=== PATIENT | female | born 1955 | race Caucasian/White ===

== ENCOUNTER 2018-02-24 20:28 | Emergency (ER) | payer BC ==
[2018-02-24] MEDS ORDERED: TETRACAINE HCL 0.5% OPH SOLN 4 ML OU ONE (21:19)
[2018-02-24] MEDS ORDERED: CIPROFLOXACIN HCL 0.3% OPH SOLN 2.5 ML OU ONE (23:13)
--- NOTE | 2018-02-24 23:14 | ER Document Report ---
ED Eye Complaint - General Chief Complaint: Redness of Eye Stated Complaint: EYE PROBLEM Time Seen by Provider: 02/24/18 21:19 Notes: Patient is a 8-year-old female presents to the emergency department complaining of erythema, swelling, foreign body sensation, discharge from her right eye. Patient states she has had a cough and congestion for about a week now. States for the last 2 days she noticed some drainage coming from her right eye and some erythema. Patient states today she noticed the drainage was also coming from her left eye and her right eye had a foreign body sensation in it which is why she presents to the emergency room. Patient does not wear contacts but does wear corrective glasses. Patient states she is supposed to have cataract surgery next month. Past medical history: Diabetes, Hypertension, hyperlipidemia Medications: Metformin, Invokana, Januvia, lisinopril, atorvastatin, Flonase, vitamin D, aspirin Allergies: Penicillin, fire ants TRAVEL OUTSIDE OF THE [place] IN LAST 30 DAYS: No - Related Data Allergies/Adverse Reactions: Penicillins Allergy (Verified 02/24/18 21:14) Past Medical History - General Information source: Patient - Social History Smoking Status: Unknown if Ever Smoked Family History: Reviewed & Not Pertinent Patient has suicidal ideation: No Patient has homicidal ideation: No Renal/ Medical History: Denies: Hx Peritoneal Dialysis Past Surgical History: Reports: Hx Section - x2, Hx Orthopedic Surgery - bilat knee replace, bilat carpel tunnel Review of Systems - Review of Systems Constitutional: See HPI EENT: See HPI Cardiovascular: No symptoms reported Respiratory: See HPI Gastrointestinal: No symptoms reported Genitourinary: No symptoms reported Female Genitourinary: No symptoms reported Musculoskeletal: No symptoms reported Skin: No symptoms reported Hematologic/Lymphatic: No symptoms reported Neurological/Psychological: No symptoms reported Physical Exam - Vital signs Vitals: Temp Pulse Resp BP Pulse Ox 98.0 F 88 18 151/84 H 94 02/24/18 20:34 02/24/18 20:34 02/24/18 20:34 02/24/18 20:34 02/24/18 20:34 - Notes Notes: GENERAL: Alert, interacts well. No acute distress. HEAD: Normocephalic, atraumatic. EYES: Pupils equal, round, and reactive to light. Extraocular movements intact. Active mucoid discharge noted bilateral medial and lateral canthi. Active chemosis and conjunctival injection noted right eye. Minor conjunctival injection left eye. No proptosis, or pain with extraocular motion. No erythema noted upper or lower lids bilaterally. ENT: Oral mucosa moist, tongue midline. Nares patent, TM's intact, nonerythematous, nonbulging. Pharynx within normal limits, no palatal petechiae or exudate noted NECK: Full range of motion. Supple. Trachea midline. LUNGS: Clear to auscultation bilaterally, no wheezes, rales, or rhonchi. No respiratory distress. HEART: Regular rate and rhythm. No murmur ABDOMEN: Soft, non-tender. Non-distended. Bowel sounds present in all 4 quadrants. EXTREMITIES: Moves all 4 extremities spontaneously. No edema, normal radial and dorsalis pedis pulses bilaterally. No cyanosis. BACK: no cervical, thoracic, lumbar midline tenderness. No saddle anesthesia, normal distal neurovascular exam. NEUROLOGICAL: Alert and oriented x3. Normal speech. cranial nerves II through XII grossly intact PSYCH: Normal affect, normal mood. SKIN: Warm, dry, normal turgor. No rashes or lesions noted. - HEENT Visual acuity- Right eye: 20/70 Visual acuity- Left eye: 20/40 Visual acuity- Both eyes: 20/40 Corrective lenses worn: Yes Course - Re-evaluation Re-evalutation: 02/24/18 23:19 flroescene stain performed bilateral eyes. 1 mm corneal abrasion noted 8:00 to the right of the iris. Active mucoid discharge noted bilateral medial and lateral canthi. Active chemosis and conjunctival injection noted right eye. Minor conjunctival injection left eye. No proptosis, or pain with extraocular motion. No erythema noted upper or lower lids bilaterally. Will treat patient for corneal abrasion, conjunctivitis. Discussed need to follow-up with ophthalmology for chemosis treatment. Discussed possible eugc-hzi-gsqyuek use of Zaditor. Close return precautions discussed - Vital Signs Vital signs: Temp Pulse Resp BP Pulse Ox 98.2 F 84 16 142/84 H 95 02/24/18 23:33 02/24/18 23:33 02/24/18 23:33 02/24/18 23:33 02/24/18 23:33 Discharge - Discharge Clinical Impression: Chemosis of right conjunctiva Corneal abrasion Qualifiers: Encounter type: initial encounter Laterality: right Qualified Code(s): S05.01XA - Injury of conjunctiva and corneal abrasion without foreign body, right eye, initial encounter Conjunctivitis Qualifiers: Conjunctivitis type: acute Acute conjunctivitis type: bacterial Laterality: bilateral Qualified Code(s): H10.33 - Unspecified acute conjunctivitis, bilateral Condition: Stable Disposition: HOME, SELF-CARE Instructions: Chemosis ([facility]), Conjunctivitis ([facility]), Corneal Abrasion ([facility]), Eyedrop Use ([facility]) Additional Instructions: As we discussed you have been seen and treated in the emergency department for a corneal abrasion and conjunctivitis. You should use antibiotic drops as prescribed. Please follow-up with your manager ob within 24-48 hours. They can give you better treatment options for the ecchymosis. Please return to the emergency room for any other concerning symptoms. Prescriptions: Ciprofloxacin HCl [Ciloxan 0.3% Oph Soln 2.5 ml] 2 drop OU QID 5 Days #1 bottle
[2018-02-24 23:34] VITALS: BP 142/84
== END 2018-02-24 23:34 | disposition home or self-care (01) ==
LOC: ER 20:28
DX: S05.01XA Injury of conjunctiva and corneal abrasion without foreign body, right eye, initial encounter (principal); H11.421 Conjunctival edema, right eye; H10.33 Unspecified acute conjunctivitis, bilateral; X58.XXXA Exposure to other specified factors, initial encounter; Z88.0 Allergy status to penicillin
CPT/HCPCS: 99283; J3490 ×2

== ENCOUNTER 2018-04-05 08:42 | Day surgery (SDC) | payer BC ==
[~2018-04-05 08:42] MED LIST: BUPIVACAINE HCL 0.75% INJ/PF (7.5 MG/1 ML) 10 ML SDV OD PRN; KETOROLAC TROMETHAMINE 0.45% 4 DROP/0.4 ML DROPERETTE OD PRN; LIDOCAINE 4% INJ/PF (40 MG/ML) 5 ML AMPUL OD PRN
[2018-04-05] MEDS ORDERED: EPINEPHRINE INJ/PF 1 MG/1 ML AMPULE ONE (09:36)
[2018-04-05] MEDS ORDERED: LIDOCAINE 1% INJ-PF (10 MG/ML) 30 ML SDV ONE (09:36)
[2018-04-05] MEDS ORDERED: CHONDR SU A NA/HYALUR INTRAOC KIT (SURGICARE) ONE (09:36)
[2018-04-05] MEDS: TROPICAMIDE 1% OPH SOLN 3 ML OD PRN ×3 (09:50→10:10)
[2018-04-05] MEDS: CYCLOPENTOLATE 0.2%/PHENYLEPHRINE 1% OPH SOLN 2 ML OD PRN ×3 (09:50→10:10)
[2018-04-05] MEDS: BESIFLOXACIN HCL 0.6% OPH SUSP 5 ML BOTTLE OD PRN ×4 (09:51→10:47)
[2018-04-05] MEDS: TETRACAINE HCL 0.5% OPH SOLN 0.6 ML DROPERETTE OD PRN ×2 (09:51→10:13)
[2018-04-05] MEDS ORDERED: ONDANSETRON HCL INJ/PF 4 MG/2 ML SDV ONE (10:02)
[2018-04-05] MEDS ORDERED: MIDAZOLAM 2 MG/2 ML INJ ONE (10:02)
[2018-04-05] MEDS ORDERED: FENTANYL CITRATE INJ/PF 100 MCG/2 ML AMPUL ONE (10:03)
--- NOTE | 2018-04-05 12:32 | [facility] DISCHARGE SUMMARY E ---
[facility] Discharge Summary NAME: YONG DAVIES AGE: 62Y ADMITTED: 04/05/2018 DISCHARGED: 04/05/2018 FINAL DIAGNOSIS: Cataract, right eye. HOSPITAL COURSE: The patient is a 62-year-old lady who underwent uneventful cataract extraction with Symfony intraocular lens implant on 04/05/2018. She will be discharged to home. She was instructed to resume preoperative medications; to take Tylenol as needed for discomfort; to keep her eye shielded; to use Durezol, Prolensa, and Besivance at 3 p.m. and 8 p.m.; and to follow up in my office in 1 day. DICTATING PHYSICIAN: NADIA DREW M.D. [id number] PHY#: [id number] ID: [id number] JOB#: [id number] ACCT: [id number] cc:NADIA DREW M.D. >
--- NOTE | 2018-04-05 12:32 | [facility] OPERATIVE REPORT E ---
[facility] Operative Report NAME: YONG DAVIES AGE: 62Y DATE OF SURGERY: 04/05/2018 ROOM: PREOPERATIVE DIAGNOSIS: Cataract, right eye. POSTOPERATIVE DIAGNOSIS: Cataract, right eye. PROCEDURE PERFORMED: Phacoemulsification with Symfony intraocular lens. SURGEON: NADIA DREW M.D. ANESTHESIA: Topical with MAC. INDICATIONS FOR SURGERY: Difficulty sewing, reading, and driving at night. PROCEDURE: The patient was brought to the operating room and placed on the operative table. Following tetracaine drops, topical anesthesia was administered. This consisted of instrument wipe pledgets soaked in a solution of 4% Xylocaine mixed with 0.75% Marcaine in a 1:2 ratio. A 2 x 1 cm pledget was placed in the superior fornix. A 1 x 1 cm pledget was placed in the inferior fornix. The eye was patched shut for 5 minutes. The patch was removed. The eye was sterilely prepped and draped in the usual manner. Lid speculum was placed in the eye. The pledgets were removed and 4-0 black silk sutures were placed around the superior and the inferior rectus muscles to be used as traction. A conjunctival peritomy was made at the 10 o'clock position. Hemostasis was obtained with bipolar cautery. A posterior limbal groove was created using a crescent knife and dissected anteriorly towards the cornea. A sharp point blade was used to create a paracentesis site at the 2 o'clock position. A 2.4 mm keratome was used to enter the anterior chamber through the groove. Viscoelastic was injected into the anterior chamber. An anterior capsulotomy was performed using Utrata forceps in a capsulorrhexis fashion. Hydrodissection and hydrodelineation were performed. Phacoemulsification was performed in mqotmn-zsq-umwzvbz technique. Total phaco time was 3.79 CDE. Following this, the I/A unit was used to remove residual cortex. Viscoelastic was injected into the capsular bag. Intraocular lens model ZXR00, 18.5 diopters, serial number [id number], was placed in the capsular bag. The I/A unit was used to remove residual viscoelastic. The wound was seen to be watertight under high and low pressure, and no sutures were placed. The intraocular lens was well centered. The pressure was adjusted in the eye to normal pressure. The 4-0 black silk sutures and lid speculum were removed. The eye was shielded after Besivance drops were placed. The patient tolerated the procedure well and was sent to the recovery room in good condition. DICTATING PHYSICIAN: NADIA DREW M.D. [id number] PHY#: [id number] ID: [id number] JOB#: [id number] ACCT: [id number] cc:NADIA DREW M.D. >
== END 2018-04-05 11:50 | disposition home or self-care (01) ==
LOC: SC 08:42
PROVIDERS: ATTEND Ophthalmology
DX: H25.813 Combined forms of age-related cataract, bilateral (principal); B30.8 Other viral conjunctivitis; E11.9 Type 2 diabetes mellitus without complications; I10 Essential (primary) hypertension; E78.00 Pure hypercholesterolemia, unspecified; M19.90 Unspecified osteoarthritis, unspecified site; E89.2 Postprocedural hypoparathyroidism; Z79.899 Other long term (current) drug therapy; Z79.84 Long term (current) use of oral hypoglycemic drugs; Z96.653 Presence of artificial knee joint, bilateral
CPT/HCPCS: 66984; 82962; V2788; J2250; J3490 ×4; J0171; J3010; J2405; 142

== ENCOUNTER 2018-06-06 07:37 | Day surgery (SDC) | payer BC ==
[~2018-06-06 07:37] MED LIST changes: -BUPIVACAINE HCL 0.75% INJ/PF (7.5 MG/1 ML) 10 ML SDV OD PRN; +BUPIVACAINE HCL 0.75% INJ/PF (7.5 MG/1 ML) 10 ML SDV OS PRN; +DORZOLAMIDE HCL 2%/TIMOLOL MALEAT 0.5% OPH SOLN 10 ML OS PRN; -KETOROLAC TROMETHAMINE 0.45% 4 DROP/0.4 ML DROPERETTE OD PRN; +KETOROLAC TROMETHAMINE 0.45% 4 DROP/0.4 ML DROPERETTE OS PRN; -LIDOCAINE 4% INJ/PF (40 MG/ML) 5 ML AMPUL OD PRN; +LIDOCAINE 4% INJ/PF (40 MG/ML) 5 ML AMPUL OS PRN
[2018-06-06] MEDS: TROPICAMIDE 1% OPH SOLN 3 ML OS PRN ×3 (08:21→08:41)
[2018-06-06] MEDS: CYCLOPENTOLATE 0.2%/PHENYLEPHRINE 1% OPH SOLN 2 ML OS PRN ×3 (08:21→08:41)
[2018-06-06] MEDS: BESIFLOXACIN HCL 0.6% OPH SUSP 5 ML BOTTLE OS PRN ×3 (08:22→09:30)
[2018-06-06] MEDS: TETRACAINE HCL 0.5% OPH SOLN 0.6 ML DROPERETTE OS PRN ×2 (08:23→08:42)
[2018-06-06] MEDS ORDERED: CHONDR SU A NA/HYALUR INTRAOC KIT (SURGICARE) ONE (08:25)
[2018-06-06] MEDS ORDERED: LIDOCAINE 1% INJ-PF (10 MG/ML) 30 ML SDV ONE (08:25)
[2018-06-06] MEDS ORDERED: EPINEPHRINE INJ/PF 1 MG/1 ML AMPULE ONE (08:25)
--- NOTE | 2018-06-06 09:39 | [facility] DISCHARGE SUMMARY E ---
[facility] Discharge Summary NAME: YONG DAVIES AGE: 62Y ADMITTED: 06/06/2018 DISCHARGED: 06/06/2018 FINAL DIAGNOSIS: Cataract, left eye. HOSPITAL COURSE: The patient is a 62-year-old lady who underwent uneventful cataract extraction with Symfony intraocular lens implant, left eye, on 06/06/2018. She will be discharged to home. She was instructed to resume preoperative medications; to take Tylenol as needed for discomfort; to keep her eye shielded; to use Durezol, Prolensa, and Besivance at 3 p.m. and 8 p.m.; and to follow up in my office in 1 day. DICTATING PHYSICIAN: NADIA DREW M.D. [id number] PHY#: [id number] ID: [id number] JOB#: [id number] ACCT: [id number] cc:NADIA DREW M.D. >
--- NOTE | 2018-06-06 09:39 | [facility] OPERATIVE REPORT E ---
[facility] Operative Report NAME: YONG DAVIES AGE: 62Y DATE OF SURGERY: 06/06/2018 ROOM: PREOPERATIVE DIAGNOSIS: Cataract, left eye. POSTOPERATIVE DIAGNOSIS: Cataract, left eye. PROCEDURE PERFORMED: Cataract surgery with Symfony intraocular lens implant, left eye. SURGEON: NADIA DREW M.D. ANESTHESIA: Topical with MAC. INDICATIONS FOR SURGERY: Difficulty with glare with night driving. PROCEDURE: The patient was brought to the operating room and placed on the operative table. Following tetracaine drops, topical anesthesia was administered. This consisted of instrument wipe pledgets soaked in a solution of 4% Xylocaine mixed with 0.75% Marcaine in a 1:2 ratio. A 2 x 1 cm pledget was placed in the superior fornix. A 1 x 1 cm pledget was placed in the inferior fornix. The eye was patched shut for 5 minutes. The patch was removed. The eye was sterilely prepped and draped in the usual manner. Lid speculum was placed in the eye. The pledgets were removed and 4-0 black silk sutures were placed around the superior and the inferior rectus muscles to be used as traction. A conjunctival peritomy was made at the 10 o'clock position. Hemostasis was obtained with bipolar cautery. A posterior limbal groove was created using a crescent knife and dissected anteriorly towards the cornea. A sharp point blade was used to create a paracentesis site at the 2 o'clock position. A 2.4 mm keratome was used to enter the anterior chamber through the groove. Viscoelastic was injected into the anterior chamber. An anterior capsulotomy was performed using Utrata forceps in a capsulorrhexis fashion. Hydrodissection and hydrodelineation were performed. Phacoemulsification was performed in zsuofj-zie-naohvuu technique. Total phaco time was 3.97 CDE. Following this, the I/A unit was used to remove residual cortex. Viscoelastic was injected into the capsular bag. Intraocular lens model ZXR00, 19.5 diopters, serial number [id number], was placed in the capsular bag. The I/A unit was used to remove residual viscoelastic. The wound was seen to be watertight under high and low pressure, and no sutures were placed. The intraocular lens was well centered. The pressure was adjusted in the eye to normal pressure. The 4-0 black silk sutures and lid speculum were removed. The eye was shielded after Besivance drops were placed. The patient tolerated the procedure well and was sent to the recovery room in good condition. DICTATING PHYSICIAN: NADIA DREW M.D. [id number] PHY#: [id number] ID: [id number] JOB#: [id number] ACCT: [id number] cc:NADIA DREW M.D. >
[2018-06-06] MEDS ORDERED: MIDAZOLAM 2 MG/2 ML INJ ONE (09:52)
== END 2018-06-06 10:03 | disposition home or self-care (01) ==
LOC: SC 07:37
PROVIDERS: ATTEND Ophthalmology
DX: H25.812 Combined forms of age-related cataract, left eye (principal); Z96.1 Presence of intraocular lens; I10 Essential (primary) hypertension; E11.9 Type 2 diabetes mellitus without complications; Z79.899 Other long term (current) drug therapy; Z79.84 Long term (current) use of oral hypoglycemic drugs; Z88.2 Allergy status to sulfonamides; E66.9 Obesity, unspecified; Z68.38 Body mass index [BMI] 38.0-38.9, adult
CPT/HCPCS: 66984; 82962; V2788; J2250; J3490 ×4; J0171; 142

== ENCOUNTER 2019-02-14 10:01 | Day surgery (SDC) | payer BC ==
[~2019-02-14 10:01] MED LIST changes: +BALANCED SALT IRRIG SOLN COMB2 15 ML BOTTLE ONE; +BUPIVACAINE HCL 0.75% INJ/PF (7.5 MG/1 ML) 10 ML SDV ONE; -BUPIVACAINE HCL 0.75% INJ/PF (7.5 MG/1 ML) 10 ML SDV OS PRN; -DORZOLAMIDE HCL 2%/TIMOLOL MALEAT 0.5% OPH SOLN 10 ML OS PRN; -KETOROLAC TROMETHAMINE 0.45% 4 DROP/0.4 ML DROPERETTE OS PRN; +LIDOCAINE 2%/EPINEPHRINE INJ 20 ML VIAL ONE; -LIDOCAINE 4% INJ/PF (40 MG/ML) 5 ML AMPUL OS PRN; +NORMAL SALINE INJ/PF 0.9% 10 ML SDV ONE; +POVIDONE-IODINE 5% OPH PREP SOLN 30 ML ONE; +TETRACAINE HCL 0.5% OPH SOLN 4 ML ONE; +TRANEXAMIC ACID INJ/PF 1,000 MG/10 ML SDV ONE
[2019-02-14] MEDS ORDERED: LIDOCAINE 2% INJ-PF (20 MG/ML) 10 ML AMPUL ONE (11:47)
[2019-02-14] MEDS ORDERED: MIDAZOLAM 2 MG/2 ML INJ ONE (11:47)
[2019-02-14] MEDS ORDERED: FENTANYL CITRATE INJ/PF 100 MCG/2 ML AMPUL ONE (11:47)
[2019-02-14] MEDS ORDERED: PROPOFOL INJ 200 MG/20 ML VIAL IV ONE (11:48)
[2019-02-14] MEDS ORDERED: NEO/POLYMYX B SULF/DEXAMETH OPH OINTMENT 3.5 GM ONE (12:22)
[2019-02-14] MEDS ORDERED: ACETAMINOPHEN 325 MG TABLET ONE (13:20)
--- NOTE | 2019-02-14 13:20 | Operative Report ---
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 Tetracaine drops were placed in the eyes. Attention was directed to both upper lids where the upper lid crease was marked and 0.3 mm forceps were used to estimate the excess upper eyelid skin to be excised. This was marked in an elliptical fashion. Local anesthesia was administered. This consisted of 2% Xylocaine with epinephrine mixed with 0.75% Marcaine. Approximately 2.5 mL's of this was used to infiltrate both upper eyelids in the previous marked areas and the local anesthetic was diffuse with a Q-tip. Attention was directed to the left upper lid where the elliptical of skin was removed. Hemostasis was obtained with bipolar cautery. The orbital septum was opened and prolapse retroseptal fat was grasped with a hemostat, cut and cauterized. Triamcinic acid 50% dilution was placed on the incision. Identical procedure was performed on the right upper lid. Wound closure was completed with 3 interrupted 6-0 silk sutures, equally spaced through both upper lids, taking a deep bite of the fascia. This was followed by a running 6-0 nylon suture. There was full closure of the lids and good hemostasis at the end of the surgery. Maxitrol ointment was placed on both upper lids. Patient tolerated procedure well and sent to recovery room and in good condition.
== END 2019-02-14 14:03 | disposition home or self-care (01) ==
LOC: SC 10:01
PROVIDERS: ATTEND Ophthalmology
DX: H02.831 Dermatochalasis of right upper eyelid (principal); H02.834 Dermatochalasis of left upper eyelid; H53.453 Other localized visual field defect, bilateral; E11.9 Type 2 diabetes mellitus without complications; I10 Essential (primary) hypertension; Z79.899 Other long term (current) drug therapy; Z88.0 Allergy status to penicillin; Z79.84 Long term (current) use of oral hypoglycemic drugs; E66.9 Obesity, unspecified
CPT/HCPCS: 15823; 82962; J2250; J3490 ×8; J3010; J2704; 103